=== PATIENT | female | born 2000 | race African-American/Black ===

== ENCOUNTER 2022-07-28 16:33 | Emergency (ER) | payer OTHER, SELFPAY ==
[2022-07-28 16:43] VITALS: BP 115/68; PULSE 98; RESP 20; TEMP 37.2; O2SAT 100
--- NOTE | 2022-07-28 16:47 | ED.EYEPROB ---
HPI - Eye Problem General Chief complaint: Eye Problems Stated complaint: lt eye swelling and pain Time Seen by Provider: 07/28/22 16:47 Source: patient Mode of arrival: ambulatory Limitations: no limitations History of Present Illness HPI Narrative: 21 y/o female presented for c/o left eye pain and upper eye lid swelling for 4 days. States she woke at the onset with the eye swollen. Endorses lower eyelid is swelling today, the eye feels itchy, and she has occasional 'blurred vision.' Using warm compresses and witch amy. Denies known foreign body, headache, eye drainage, or photophobia. Denies associated sinus congestion or drainage. Denies sick contacts. She does not wear contact lenses. Requesting note for school stating I am fatigued. chief complaint: eye pain Related Data Allergies Allergy/AdvReac Type Severity Reaction Status Date / Time No Known Allergies Allergy Verified 07/28/22 16:47 Review of Systems Review of Systems: CONSTITUTIONAL: Denies body aches, fever, chills EYES:Endorses swelling, redness and pain to eye; FB sensation, photophobia Denies visual changes ENT: Denies rhinorrhea, congestion, sore throat, or otalgia. CARDIOVASCULAR: Denies chest pain, palpitations RESPIRATORY: Denies cough or dyspnea. GASTROINTESTINAL: Denies abdominal pain, nausea, vomiting, or diarrhea. SKIN: Denies rash, itching, or wounds. MUSCULOSKELETAL: Denies back pain, joint pain, or myalgia. NEUROLOGIC: Denies headache, numbness, tingling, or weakness. All systems reviewed & are unremarkable except as noted in HPI and below PMFSH Past Medical History Medical History No active medical problems Surgical History Surgical History No pertinent past surgical history Family History Family History Grandparent Diabetes mellitus Social History Social History Smoking status: Never smoker Alcohol intake: never Substance use: never Comments At time of signature, I have reviewed and agree with nursing past medical, surgical, social and family history unless otherwise noted. Please see nursing chart for further information. There is no relevant family history pertinent to the presenting complaint Exam Narrative: GENERAL: Well-appearing HEAD: Normocephalic, atraumatic. EYES: No conjunctival injection, Mild left upper eye lid swelling/redness with approx 2mm raised lesion at center of eye lid rim c/w stye. EOMI. Lid eversion showed no FB. No drainage. Mild tenderness with palpation. PERRLA. ENT: Mucous membranes pink and moist. No rhinorrhea. TMs normal bilaterally. ABDOMEN: Soft, nontender, nondistended SKIN: Warm, dry, no rash. Normal skin turgor. NEURO: No focal deficits. Alert and oriented x3 PSYCH: flat affect. Course Course Emergency Course: Patient is aware of diagnosis, understands and agrees to treatment plan. Anticipatory guidance given. Patient agrees to follow-up as directed and is aware of reasons to seek care at the emergency department. Portions of this record may have been created with voice recognition software Level of Care: Express Care Visit Vital Signs Vital signs: Vital Signs Temperature 98.9 F 07/28/22 16:43 Pulse Rate 98 07/28/22 16:43 Respiratory Rate 20 07/28/22 16:43 Blood Pressure 115/68 07/28/22 16:43 Pulse Oximetry 100 07/28/22 16:43 Oxygen Delivery Room Air 07/28/22 16:43 Temperature 98.9 F 07/28/22 16:43 Pulse Rate 98 07/28/22 16:43 Respiratory Rate 20 07/28/22 16:43 Blood Pressure 115/68 07/28/22 16:43 Pulse Oximetry 100 07/28/22 16:43 Oxygen Delivery Room Air 07/28/22 16:43 MDM - Eye Problem MDM Narrative Medical decision making narrative: Reviewed visual ac
== END 2022-07-28 17:05 | disposition home or self-care (01) ==
PROVIDERS: Emergency Provider Nurse Practitioner Family
DX: H00.014 Hordeolum externum left upper eyelid (principal)
CPT/HCPCS: 99213; G0463